=== PATIENT | male | born 1985 | race Caucasian/White ===

== ENCOUNTER 2023-06-29 09:51 | Outpatient (CLI) | payer BC | END 2023-06-29 09:52 | disposition home or self-care (01) | LOC: CSHLAB 09:51 | PROVIDERS: ATTEND Otolaryngology Otolaryngic Allergy | DX: Z01.818 Encounter for other preprocedural examination (principal) | CPT/HCPCS: 93005; 93010 ==

== ENCOUNTER 2023-07-06 07:20 | Day surgery (SDC) | payer BC ==
[2023-06-29 10:20] VITALS: BMI 25.1
[2023-07-06] MEDS ORDERED: EPINEPHrine 1 MG/ML VIAL ONE (09:23)
[2023-07-06] MEDS ORDERED: Dexmedetomidine 200 MCG/2 ML VIAL ONE (09:24)
[2023-07-06] MEDS ORDERED: SUGAMMADEX SODIUM 200 MG/2 ML VIAL ONE (09:25)
[2023-07-06] MEDS ORDERED: fentaNYL 50 mcg/mL 1 mL Vial ONE (09:29)
[2023-07-06] MEDS ORDERED: Ondansetron PF 4 MG/2 ML Vial ONE (09:29)
[2023-07-06] MEDS ORDERED: Lidocaine 1% PF 5 ML VIAL ONE (09:29)
[2023-07-06] MEDS ORDERED: PROPOFOL 20 ML ONE ×2 (09:29→09:53)
[2023-07-06] MEDS ORDERED: Midazolam HCl 2 mg/2 ml Vial ONE (09:29)
[2023-07-06] MEDS ORDERED: Rocuronium Bromide 10 MG/ML (10ML VIAL) ONE (09:29)
[2023-07-06] MEDS ORDERED: Dexamethasone 20 MG/5 ML VIAL ONE (09:29)
[2023-07-06] MEDS ORDERED: Lidocaine 1% w/Epinephrine 1:100K 20 ML VIAL ONE (09:49)
[2023-07-06] MEDS ORDERED: Hydrocodone-Acetamin 15 ML UDCUP ONE (11:19)
== END 2023-07-06 12:05 | disposition home or self-care (01) ==
LOC: CSHSDC 07:20
PROVIDERS: ATTEND Otolaryngology Otolaryngic Allergy
PROC: 0CBM8ZX Excision of Pharynx, Via Natural or Artificial Opening Endoscopic, Diagnostic (ICD-10-PCS; principal; 2023-07-06)
DX: K13.21 Leukoplakia of oral mucosa, including tongue (principal); K13.70 Unspecified lesions of oral mucosa; H90.3 Sensorineural hearing loss, bilateral; F17.210 Nicotine dependence, cigarettes, uncomplicated
CPT/HCPCS: 88305; J0171; J1100; J2250; J2405; J2704; J3010